=== PATIENT | male | born 1975 | race African-American/Black ===

== ENCOUNTER 2019-02-24 12:13 | Inpatient (IN) ==
[2019-02-24] MEDS ORDERED: NS 1,000 ML IV ONE ×3 (12:40→12:41)
[2019-02-24] MEDS ORDERED: HUMULIN R (PARKWAY) IV ONE (12:41)
[2019-02-24] MEDS ORDERED: HUMULIN R (PARKWAY) ONE (12:54)
[2019-02-24 13:16] LABS: BE -22.6 mmoll (-3.0-3.0); BLOOD TYPE ARTERIAL; HCO3-(ACT) 7.2 mmoll (20.0-26.0); METHB 0.9 % (0.0-1.5); O2(CT) 25.2 mL/dL (15.0-23.0); O2HB 95.9 % (95.0-99.0); PO2(98.6) 137 mmHg (60-100); SAMPLE BLOOD; SAO2 99.4 % (95.0-100.0); THB 18.6 g/dL (11.5-17.4)
[2019-02-24 13:21] LABS: PCO2(98.6) 12 mmHg (35-45); pH(98.6) 7.12 (7.35-7.45)
[2019-02-24 13:22] LABS: ALLEN TEST YES; MODALITY ROOM AIR
[2019-02-24] MEDS ORDERED: ROCEPHIN 1 GM in NS 50 ML IV ONE (13:26)
--- NOTE | 2019-02-24 13:26 | PROVIDER DOCUMENTATION ---
This chart was entered by Mary Gonzalez Scribe, acting as scribe for Gregg Sweeney MD. HPI-General Adult - General Chief Complaint: Weakness Stated Complaint: ELEVATED BS Time Seen by Provider: 02/24/19 12:17 Source: patient Allergies/Adverse Reactions: Patient Allergies Allergy/AdvReac Type Severity Reaction Status Date / Time No Known Allergies Allergy Verified 02/24/19 12:19 Home Medications: Home Medication List Medication Instructions Recorded Confirmed Last Taken Type Lisinopril 20 mg PO DAILY 02/24/19 02/24/19 02/23/19 History Metformin [Glucophage] 1,000 mg PO BID CC 02/24/19 02/24/19 02/24/19 08:00 History - History of Present Illness -Gen Adult Nature of Presenting Problems: 43 y/o male presents to ED with weakness, nausea, polyuria, and polydipsia onset 4 days ago. Pt reports he is diabetic and has not been checking his blood sugar. Pt is alert and oriented. Location of Pain/Injury: reports: generalized Pain Radiation: reports: no radiation Quality of Pain: reports: none Severity: reports: mild Onset/Duration: reports: 4 days ago Timing: reports: still present Context/Activities at Onset: reports: none Modifying Factors: improves with: nothing Associated Symptoms: reports: nausea, weakness, other (polyuria; polydipsia; hyperglycemia) Similar Symptoms Previously?: No Recently seen or treated by another doctor?: No - Diabetes Related Context Context: reports: high blood sugar, prior DKA hospitalization Review of Systems - Adult - REVIEW OF SYSTEMS - ADULT Constitutional: reports: other (hyperglycemia). denies: chills, fever Eyes: reports: no symptoms reported Ears, Nose, Mouth & Throat: reports: no symptoms reported Cardiovascular: denies: chest pain, palpitations Respiratory: denies: cough, shortness of breath Gastrointestinal: reports: nausea. denies: abdominal pain, diarrhea, vomiting Genitourinary: reports: no symptoms reported Musculoskeletal: denies: back pain, joint pain Integumentary: reports: no symptoms reported Neurological: reports: other (weakness). denies: dizziness/vertigo, seizure Psychiatric: reports: no symptoms reported Endocrine: reports: increased thirst, polyuria, other (hyperglycemia). denies: goiter Hematologic/Lymphatic: reports: no symptoms reported Allergic/Immunologic: reports: no symptoms reported All Other Systems: Reviewed and Negative Past History - Adult - PAST MEDICAL HISTORY-ADULT Review of Records: reports: Old Records Reviewed, Nursing Assessment Review, Medications Reviewed Major Childhood Illnesses: reports: denies history Endocrine/Immune: reports: Diabetes - PRIOR SURGERIES/PROCEDURES Surgical/Procedure History: reports: none - IMMUNIZATION STATUS Childhood Immunizations: See Nurse Assessment Flu Vaccine: See Nurse Assessment - FAMILY HISTORY Family History: reviewed, not pertinent - SOCIAL HISTORY Smoking: quit greater than 1 year Substance Use: none/never Alcohol Use Frequency: occasionally Living Situation: family Physical Exam-General - PHYSICAL EXAM-ADULT Initial Vital Signs Reviewed: Yes - CONSTITUTIONAL General Appearance: no apparent distress, obese, lethargic, other (dry oral mucosa, tachycardic) - EYES Eyes: PERRL/EOMI, pink conjunctivae - HEAD, EARS, NOSE, MOUTH & THROAT HENMT: normocephalic/atraumatic. negative: moist mucous membranes (dry) - NECK Neck: non-tender, full range of motion - RESPIRATORY Respiratory: chest non-tender, lungs clear, other (clear) - CARDIOVASCULAR Cardiovascular: tachycardia - GASTROINTESTINAL (ABDOMEN) Abdominal Exam: normal bowel sounds, non tender, soft, other (obese) - MUSCULOSKELETAL Back Exam: normal inspection, no CVA tenderness Extremity: normal range of motion, non-tender, normal gait, other (generalized weakness) Peripheral Pulses: radial (R): 2+, radial (L): 2+ - SKIN Integumentary: normal color, warm/dry - NEUROLOGIC Neurologic: grossly normal - PSYCHIATRIC Psych/Mental Status: normal thought content, normal thought process, anxious Progress - PLAN OF CARE/RESULTS Progress/Plan/Lab Results: Vital Signs - 8 hr 02/24/19 12:16 02/24/19 12:46 Temperature 97.3 F L Pulse Rate 120 H 120 H Respiratory Rate 18 24 Blood Pressure 161/88 174/69 O2 Sat by Pulse Oximetry 99 100 Laboratory Results - last 24 hr 02/24/19 12:21 POC Glucose 500 H Orders Category Date Time Status Cardiac Monitoring DIRECTED Care 02/24/19 12:44 Active FSBS/Accucheck Result AT ADMISSION Care 02/24/19 12:45 Active Misc. NRSG Communication Order DIRECTED Care 02/24/19 12:46 Active ABG [RESP] Routine Lab 02/24/19 12:42 Ordered BLOOD CULTURE [BLDCUL] Stat Lab 02/24/19 12:45 Ordered CBC WITH ELECTRONIC DIFF [HEME] Stat Lab 02/24/19 12:40 Results CMP [COMPREHENSIVE METABOLIC PANEL] [CHEM] Stat Lab 02/24/19 12:45 Received LACTATE, PLASMA [CHEM] Stat Lab 02/24/19 12:[address] W/POSS RFLX CULT [URINALYSIS] Stat Lab 02/24/19 12:44 Uncollected 0.9% Sodium Chloride Inj [Ns] 1,000 ml Med 02/24/19 12:40 Active IV 999 mls/hr 0.9% Sodium Chloride Inj [Ns] 1,000 ml Med 02/24/19 12:40 Active IV 999 mls/hr 0.9% Sodium Chloride Inj [Ns] 1,000 ml Med 02/24/19 12:41 Active IV 999 mls/hr Insulin Human Regular (Impact [Humulin R (Impact)] Med 02/24/19 12:54 Discontinued 1 units .ROUTE .STK-MED ONE Insulin Human Regular (Impact [Humulin R (Impact)] Med 02/24/19 12:41 Discontinued 15 units IV NOW ONE Laboratory Tests 02/24/19 02/24/19 02/24/19 12:21 12:40 12:46 WBC 9.04 RBC 8.21 H Hgb 18.7 H Hct 58.9 H MCV 71.7 L MCH 22.8 L MCHC 31.7 L RDW Std Deviation 18.9 H Plt Count 224 MPV Not Reportable Immature Gran % (Auto) 0.8 H Neut % (Auto) 70.3 Lymph % (Auto) 14.8 L Finney % (Auto) 13.1 H Eos % (Auto) 0.0 Baso % (Auto) 1.0 H Immature Gran # (Auto) 0.07 H Neut # (Auto) 6.36 Lymph # (Auto) 1.34 Finney # (Auto) 1.18 H Eos # (Auto) 0.00 Baso # (Auto) 0.09 PT INR PTT (Actin FS) Specimen Type Sample Site pH pCO2 pO2 HCO3 Base Excess Oxyhemoglobin ABG O2 Sat (Calculated) ABG O2 Saturation ABG Carboxyhemoglobin ABG Methemoglobin Steven Test A-a O2 Difference Total Hemoglobin Lactate Blood Gas Modality FiO2 % Sodium 142 Potassium 5.1 Chloride 102 Carbon Dioxide 5 L Anion Gap 36 BUN 24 H Creatinine 1.6 H Estimated GFR/1.73 m2 47 BUN/Creatinine Ratio 15 Glucose 503 H* POC Glucose 500 H Calculated Osmolality 310 Calcium 9.5 Total Bilirubin 1.10 H AST 20 ALT 25 Alkaline Phosphatase 102 Creatine Kinase Troponin T Total Protein 9.5 H Albumin 4.8 Globulin 5.0 Albumin/Globulin Ratio 1.0 Plasma Lactate 02/24/19 02/24/19 02/24/19 12:46 12:46 12:46 WBC RBC Hgb Hct MCV MCH MCHC RDW Std Deviation Plt Count MPV Immature Gran % (Auto) Neut % (Auto) Lymph % (Auto) Finney % (Auto) Eos % (Auto) Baso % (Auto) Immature Gran # (Auto) Neut # (Auto) Lymph # (Auto) Finney # (Auto) Eos # (Auto) Baso # (Auto) PT 14.4 INR 1.07 PTT (Actin FS) 26.5 Specimen Type Sample Site pH pCO2 pO2 HCO3 Base Excess Oxyhemoglobin ABG O2 Sat (Calculated) ABG O2 Saturation ABG Carboxyhemoglobin ABG Methemoglobin Steven Test A-a O2 Difference Total Hemoglobin Lactate Blood Gas Modality FiO2 % Sodium Potassium Chloride Carbon Dioxide Anion Gap BUN Creatinine Estimated GFR/1.73 m2 BUN/Creatinine Ratio Glucose POC Glucose Calculated Osmolality Calcium Total Bilirubin AST ALT Alkaline Phosphatase Creatine Kinase 70 Troponin T Total Protein Albumin Globulin Albumin/Globulin Ratio Plasma Lactate 3.2 H 02/24/19 02/24/19 02/24/19 12:46 13:00 13:55 WBC RBC Hgb Hct MCV MCH MCHC RDW Std Deviation Plt Count MPV Immature Gran % (Auto) Neut % (Auto) Lymph % (Auto) Finney % (Auto) Eos % (Auto) Baso % (Auto) Immature Gran # (Auto) Neut # (Auto) Lymph # (Auto) Finney # (Auto) Eos # (Auto) Baso # (Auto) PT INR PTT (Actin FS) Specimen Type ARTERIAL Sample Site R RADIAL pH 7.12 L* pCO2 12 L* pO2 137 H HCO3 7.2 L Base Excess -22.6 L Oxyhemoglobin 95.9 ABG O2 Sat (Calculated) 25.2 H ABG O2 Saturation 99.4 ABG Carboxyhemoglobin 2.60 H ABG Methemoglobin 0.9 Steven Test YES A-a O2 Difference -2.0 Total Hemoglobin 18.6 H Lactate 2.60 H Blood Gas Modality ROOM AIR FiO2 % 21.0 Sodium Potassium Chloride Carbon Dioxide Anion Gap BUN Creatinine Estimated GFR/1.73 m2 BUN/Creatinine Ratio Glucose POC Glucose 421 H Calculated Osmolality Calcium Total Bilirubin AST ALT Alkaline Phosphatase Creatine Kinase Troponin T < 0.010 Total Protein Albumin Globulin Albumin/Globulin Ratio Plasma Lactate Result Diagrams: 02/24/19 12:40 02/24/19 12:46 - EKG 1 Time of EKG reading by physician:: 12:31 EKG Read and Signed by:: Gregg Sweeney EKG Interpretation (*Must complete 3 of following elements*): Normal (Borderl ine) Rate: 129 Rhythm: Sinus tach w/ pccasional PVCs [place]: normal QRS: PVC's, other (R atrial enlargement) [place] Interval: normal ST Wave: normal - XRAY 1 XRAY Study: Chest Impression: Normal (FINDINGS: Heart size is normal. There is mild tortuosity of the thoracic aorta. The lungs appear clear. There is no pleural effusion or pneumothorax identified. IMPRESSION: No evidence of acute disease. Electronically signed by Omer Orantes 02/24/2019 1:59 PM) - CONSULTS/PCP/HOSPITALIST Notification #1 *Consult/PCP/Hospitalist*: Dr. Oreilly Time Discussed: 15:05 Reason/Comments: DKA Consult Disposition: Admit Departure - Departure Date of Disposition Decision: 02/24/19 Time of Disposition Decision: 15:08 DIAGNOSIS: Diabetic ketoacidosis Qualifiers: Diabetes mellitus type: type 2 Diabetes mellitus complication detail: without coma Qualified Code(s): E11.10 - Type 2 diabetes mellitus with ketoacidosis without coma Disposition: ADMITTED INPATIENT 09 Certified Medical Emergency: Emergent Condition: Critical - Critical Care Note This patient required my direct & personal management of CC.: Yes Total Time (mins): 170 Critical Care Statement: This patient required my direct personal management to treat or rule out processes, the absence of which, could potentiallly result in sudden, clinically significant life or limb threatening deterioration. Attestation - Physician/ COLLNI Attestation Patient care was provided by Advanced Practice Provider:: No The physician spent face to face time with patient:: Yes Advanced Practice Provider documentation review:: Supervising physician onsite and consulted in the evaluation and care of this patient. The physician did have a face to face encounter with the patient. This chart was documented by the indicated scribe, (Mary Gonzalez, Len) and accurately reflects the services I performed and decisions made by me, Gregg Sweeney MD, as attested by the provider's signature.
--- NOTE | 2019-02-24 14:02 | Diag Imaging Result Doc PS360 ---
EXAM: CHEST-1 VIEW - 02/24/2019 HISTORY: cough TECHNIQUE: Portable chest COMPARISON: None. FINDINGS: Heart size is normal. There is mild tortuosity of the thoracic aorta. The lungs appear clear. There is no pleural effusion or pneumothorax identified. IMPRESSION: No evidence of acute disease. Electronically signed by Omer Orantes 02/24/2019 1:59 PM
[2019-02-24 14:05] LABS: INR 1.07; PROTIME 14.4 Seconds (11.0-16.0)
[2019-02-24 14:06] LABS: PTT 26.5 Seconds (22.3-41.8)
[2019-02-24 14:13] LABS: BASO# 0.09 X1000 (0.0-0.2); HEMATOCRIT 58.9 % (42.0-52.0); HEMOGLOBIN 18.7 g/dL (14.0-18.0); IMM GRAN# 0.07 X1000 (0.0-0.04); IMM GRAN% 0.8 % (0.0-0.5); LYMPH# 1.34 X1000 (1.2-3.4); LYMPH% 14.8 % (20.5-51.1); MCH 22.8 PG (27-31); MCHC 31.7 g/dL (33-37); MCV 71.7 FL (81-99); MONO# 1.18 X1000 (0.11-0.59); MONO% 13.1 % (1.7-9.3); NEUT# 6.36 X1000 (1.4-6.5); NEUT% 70.3 % (42.2-75.2); PLT 224 X1000 (130-400); RBC 8.21 XMIL (4.7-6.1); RDW 18.9 % (11.5-14.5); WBC 9.04 X1000 (4.8-10.8)
[2019-02-24 14:14] LABS: ALBUMIN 4.8 g/dL (3.5-5.0); CALCIUM 9.5 mg/dL (8.8-10.2); CREATININE 1.6 mg/dL (0.7-1.2); POTASSIUM 5.1 mmol/L (3.5-5.1); TOTAL BILIRUBIN 1.1 mg/dL (0.20-1.00); TOTAL PROTEIN 9.5 g/dL (6.3-8.3)
[2019-02-24 14:32] LABS: BILIRUBIN URINE NEGATIVE (NEGATIVE); BLOOD URINE 2+ (NEGATIVE); CLARITY SL. CLOUDY (CLEAR); COLOR YELLOW; KETONE URINE 3+(Large) mg/dL (NEGATIVE); LEUKOCYTES URINE NEGATIVE (NEGATIVE); NITRITE URINE NEGATIVE (NEGATIVE); PROTEIN URINE 1+(30 mg/dL) mg/dL (NEGATIVE); UROBILINOGEN URINE NORMAL
[2019-02-24 14:35] LABS: URINE SOURCE CLEAN CATCH
[2019-02-24 14:45] LABS: URINE BACTERIA 1+ /HFP; URINE CAST NONE SEEN /LPF; URINE CRYSTAL NONE SEEN /HPF; URINE EPITHELIAL CELLS <10 /HPF (<10); URINE SMALL ROUND CELLS TRANSITIONAL PRESENT; URINE WBC <10 /HPF (<10); URINE YEAST NONE SEEN /HPF
[2019-02-24] MEDS: HUMULIN R 100 UNIT in NS 99 ML IV SCH (15:10)
[2019-02-24] MEDS ORDERED: D50W SYRINGE IV PRN (15:15)
[2019-02-24 15:50] LABS: HEMOGLOBIN A1C 10.1 % (4.8-6.0)
[2019-02-24] MEDS ORDERED: COMPAZINE PR PRN (16:00)
[2019-02-24] MEDS ORDERED: POTASSIUM CHLORIDE 40 MEQ/SWI 40 MEQ/100 ML IVPB IV PRN (16:00)
[2019-02-24] MEDS ORDERED: COMPAZINE PO PRN ×2 (16:00→16:02)
[2019-02-24] MEDS ORDERED: TYLENOL PR PRN (16:00)
[2019-02-24] MEDS ORDERED: MAGNESIUM SULFATE 2 GM/S.W.I. 2 GM/50 ML IVPB IV PRN (16:00)
[2019-02-24] MEDS ORDERED: TYLENOL PO PRN (16:00)
[2019-02-24] MEDS ORDERED: ZOFRAN IV PRN (16:00)
[2019-02-24] MEDS ORDERED: POTASSIUM CHLORIDE 20% LIQUID PO PRN (16:00)
[2019-02-24] MEDS ORDERED: COMPAZINE IV PRN (16:00)
[2019-02-24] MEDS ORDERED: SODIUM BICARBONATE 8.4% 100 MEQ in STERILE WATER INJ. 500 ML IV PRN (16:00)
[2019-02-24] MEDS ORDERED: ZOFRAN PO PRN (16:00)
[2019-02-24] MEDS ORDERED: ZOFRAN ODT PO PRN (16:03)
[2019-02-24] MEDS: ATIVAN IV PRN (16:40)
[2019-02-24] MEDS: NS 1,000 ML IV SCH (17:00)
[2019-02-24 17:46] LABS: CALCIUM 8.5 mg/dL (8.8-10.2); CREATININE 1.5 mg/dL (0.7-1.2); MAGNESIUM 2.1 mg/dL (1.5-2.7); PHOSPHORUS 2.9 mg/dL (2.7-4.5); POTASSIUM 5.1 mmol/L (3.5-5.1)
[2019-02-24 17:48] LABS: BILIRUBIN URINE NEGATIVE (NEGATIVE); BLOOD URINE 2+ (NEGATIVE); CLARITY CLEAR (CLEAR); COLOR YELLOW; KETONE URINE 3+(Large) mg/dL (NEGATIVE); LEUKOCYTES URINE NEGATIVE (NEGATIVE); NITRITE URINE NEGATIVE (NEGATIVE); PROTEIN URINE 1+(30 mg/dL) mg/dL (NEGATIVE); UROBILINOGEN URINE NORMAL
[2019-02-24] MEDS ORDERED: D5 1/2 NS 1,000 ML IV SCH (18:00)
[2019-02-24] MEDS ORDERED: VANCOMYCIN IV PER PHARMACY MISC SCH (18:00)
[2019-02-24 18:07] LABS: URINE SOURCE CATH
[2019-02-24] MEDS ORDERED: APRESOLINE IV PRN (18:07)
[2019-02-24 18:09] LABS: URINE BACTERIA NEGATIVE /HFP; URINE CAST NONE SEEN /LPF; URINE CRYSTAL NONE SEEN /HPF; URINE EPITHELIAL CELLS <10 /HPF (<10); URINE RBC <10 /HPF (<10); URINE WBC <10 /HPF (<10); URINE YEAST NONE SEEN /HPF
[2019-02-24 18:10] LABS: URINE SMALL ROUND CELLS TRANSITIONAL PRESENT
[2019-02-24] MEDS: ZOSYN 2.25 GM in NS 50 ML IV SCH ×2 (18:39→23:14)
[2019-02-24] MEDS ORDERED: D5 1/2 NS 1,000 ML IV PRN (19:00)
--- NOTE | 2019-02-24 19:02 | HISTORY AND PHYSICAL ---
PRIMARY CARE PROVIDER: Dr. Christiano Pradhan in [place]. CHIEF COMPLAINT: Weakness. HISTORY OF PRESENT ILLNESS: Mr. Willis is a 43-year-old male who carries a past medical history of diabetes mellitus type 2 and hypertension, who reported weakness. He has been in the bed for 2 to 3 days, stumbling with walking, tiredness, polydipsia, polyuria. He came to the [facility] ED to be evaluated. He was found to be in diabetic ketoacidosis with an acute kidney injury. He will be admitted to the ICU on the DKA protocol. He states that he has been around sick people at work. He did not know what kind of illness they had. He could not describe it. He denies headache, fever, chills, chest pain, shortness of breath, nausea, vomiting, or diarrhea. PAST MEDICAL HISTORY: 1. Diabetes mellitus type 2, on oral medications. 2. Hypertension. PAST SURGICAL HISTORY: Denies. SOCIAL HISTORY: He lives in [place]. He works at . No tobacco, alcohol or illicit drug use. He has a sister at the bedside. FAMILY HISTORY: Father with heart disease, at the age of 70 of myocardial infarction. Mother with lung cancer. ALLERGIES: No known drug allergies. HOME MEDICATIONS: 1. Metformin 1000 mg p.o. b.i.d., this had just been increased from 500 b.i.d. by his primary care. 2. Lisinopril 20 mg p.o. daily. PHYSICAL EXAMINATION: VITAL SIGNS: Temperature is 97.8 degrees, heart rate 115, respirations 20, blood pressure 138/93, O2 is 99%. GENERAL: Mr. Willis is a 43-year-old male who is lying on the stretcher in no acute distress. Initially, he did not want to answer any questions and was a little agitated. However, his sister asked if he could have some water and I stated not until he was more awake and alert. The patient sat up in the bed and started talking and answer questions appropriately, at that time. HEENT: Atraumatic, normocephalic. PERRL. NECK: Supple. Trachea midline. CARDIOVASCULAR: S1, S2 appreciated. No murmurs, gallops, rubs noted. RESPIRATORY: Lung sounds clear bilaterally. GASTROINTESTINAL: Abdomen soft, nontender, nondistended. Positive bowel sounds 4 quadrants. EXTREMITIES: Negative for edema. No signs of clubbing or cyanosis. SKIN: Warm, dry, and intact. NEUROLOGIC: No focal deficits noted. The patient is alert and oriented x4. Follows commands. Moves all extremities. DIAGNOSTIC DATA: Chest x-ray showed no evidence of acute disease. LABORATORY DATA: White count 9, hemoglobin 18 and hematocrit 58, platelet count 224,000. ABG: pH 7.12, pCO2 12, O2 137, bicarbonate 7.2, base excess -22.6. O2 saturation 99% on room air. Lactate 2.60. Sodium 142, potassium 5.1, BUN 24, creatinine 1.6, blood glucose is 503, hemoglobin A1c 10.1, total bilirubin 1.10. Troponin less than 0.010. Triglycerides 220, cholesterol 290, plasma lactate 3.2. Urinalysis 3+ glucose, 3 large ketones, 2+ blood, acetone small. ASSESSMENT AND PLAN: 1. Diabetic ketoacidosis. The patient will be moved to the ICU at [facility]. He will be placed on the DKA protocol. Continue with aggressive IV hydration. We will give him diabetic clears and advance as tolerated per protocol. 2. Acute kidney injury. Unsure if there is an underlying chronic kidney disease. We will hold his lisinopril for now. We will give him p.r.n. metoprolol. 3. Uncontrolled diabetes mellitus. The patient is on p.o. metformin that had recently been increased from 500 to a 1000 mg b.i.d. by his primary care provider in [place] who he has not followed up with in quite some time. 4. Dehydration secondary to #1. 5. Further recommendation to follow physician evaluation, laboratory and diagnostic data. Dictated by EDUARDO Faith for Nico Oreilly MD cc: Nico Oreilly MD [facility]
[2019-02-24] MEDS ORDERED: VANCOMYCIN 2,500 MG in NS 500 ML IV SCH (20:00)
[2019-02-24 21:13] LABS: CALCIUM 8.4 mg/dL (8.8-10.2); CREATININE 1.4 mg/dL (0.7-1.2); MAGNESIUM 2.1 mg/dL (1.5-2.7); PHOSPHORUS 1.8 mg/dL (2.7-4.5); POTASSIUM 4.4 mmol/L (3.5-5.1)
--- NOTE | 2019-02-24 21:36 | HISTORY AND PHYSICAL ---
ADDENDUM: Chief complaint was generalized weakness. Patient seen and examined by myself. Full note dictated and discussed with nurse practitioner. The patient presented to the hospital, is 43- year-old, morbidly obese, male who has a known history of diabetes. He has been on metformin. His blood sugars are elevated. His metformin was increased to 1000 twice daily. He presented to the hospital with blood sugars at 500 and was quite acidotic with a pH of 7.12 and a bicarb of 5. We will admit him to the hospital ICU, place him on an insulin drip, IV fluids. We will keep him n.p.o. until his bicarb elevates to greater than 15. Currently, the patient is awake but seems disoriented. He did have some urinary retention and had 400 mL out after a [place] was placed. cc: Nico Oreilly MD
[2019-02-24] MEDS: POTASSIUM CHLORIDE 10% LIQUID PO PRN (23:14)
[2019-02-25 01:24] LABS: ESTIMATED GFR > 60; PHOSPHORUS 1.4 mg/dL (2.7-4.5)
[2019-02-25 01:30] LABS: AGAP 20; BUN 18 mg/dL (8-22); CHLORIDE 118 mmol/L (98-107); COSMO 302; CREATININE 1.2 mg/dL (0.7-1.2); GLUCOSE 199 mg/dL (70-104); POTASSIUM 4.6 mmol/L (3.5-5.1); SODIUM 148 mmol/L (136-145); TCO2 10 mmol/L (25-35)
[2019-02-25] MEDS: NS 1,000 ML IV SCH ×4 (01:43→17:56)
[2019-02-25] MEDS: POTASSIUM CHLORIDE 10% LIQUID PO PRN ×4 (01:44→14:41)
[2019-02-25 04:49] LABS: AGAP 20; BUN 18 mg/dL (8-22); CALCIUM 8.1 mg/dL (8.8-10.2); CHLORIDE 118 mmol/L (98-107); COSMO 305; CREATININE 1.2 mg/dL (0.7-1.2); ESTIMATED GFR > 60; GLUCOSE 219 mg/dL (70-104); POTASSIUM 4.3 mmol/L (3.5-5.1); SODIUM 149 mmol/L (136-145); TCO2 12 mmol/L (25-35)
[2019-02-25 04:49] LABS: BLOOD TYPE ARTERIAL; HCO3-(ACT) 13.9 mmoll (20.0-26.0); METHB 1.1 % (0.0-1.5); O2(CT) 21.8 mL/dL (15.0-23.0); O2HB 94.4 % (95.0-99.0); PCO2(98.6) 27 mmHg (35-45); PO2(98.6) 93 mmHg (60-100); SAMPLE BLOOD; SAO2 98.7 % (95.0-100.0); THB 16.4 g/dL (11.5-17.4); pH(98.6) 7.24 (7.35-7.45)
[2019-02-25 04:50] LABS: ALLEN TEST YES; MODALITY ROOM AIR
[2019-02-25 04:56] LABS: PHOSPHORUS 1.2 mg/dL (2.7-4.5)
[2019-02-25] MEDS: ZOSYN 2.25 GM in NS 50 ML IV SCH ×3 (05:13→17:55)
[2019-02-25 05:32] LABS: BASO# 0.09 X1000 (0.0-0.2); EOS# 0.05 X1000 (0.0-0.7); EOS% 0.5 % (0.0-10.0); HEMATOCRIT 47.7 % (42.0-52.0); HEMOGLOBIN 15.7 g/dL (14.0-18.0); IMM GRAN# 0.05 X1000 (0.0-0.04); IMM GRAN% 0.5 % (0.0-0.5); LYMPH% 15.2 % (20.5-51.1); MCH 23.5 PG (27-31); MCHC 32.9 g/dL (33-37); MCV 71.3 FL (81-99); MONO# 1.25 X1000 (0.11-0.59); MONO% 13.6 % (1.7-9.3); NEUT# 6.37 X1000 (1.4-6.5); NEUT% 69.2 % (42.2-75.2); PLT 152 X1000 (130-400); RBC 6.69 XMIL (4.7-6.1); RDW 17.3 % (11.5-14.5); WBC 9.21 X1000 (4.8-10.8)
[2019-02-25 05:34] LABS: LYMPHS 15 % (21-51); SEGS 75 % (42-75)
[2019-02-25 05:35] LABS: MONO 10 % (1-9)
[2019-02-25] MEDS: HUMULIN R 100 UNIT in NS 99 ML IV SCH (06:39)
--- NOTE | 2019-02-25 08:03 | Diag Imaging Result Doc PS360 ---
EXAM: CHEST-PORTABLE - 02/25/2019 HISTORY: follow up TECHNIQUE: Portable chest COMPARISON: 02/24/2019 FINDINGS: Heart size is normal. Inspiration is mildly shallow. The lungs appear clear. There is no pleural effusion or pneumothorax identified. IMPRESSION: Mildly shallow inspiration. No other evidence of acute disease. Electronically signed by Omer Orantes 02/25/2019 8:01 AM
[2019-02-25 08:55] LABS: MAGNESIUM 2.1 mg/dL (1.5-2.7); PHOSPHORUS 1.1 mg/dL (2.7-4.5)
[2019-02-25] MEDS: VANCOMYCIN 2,000 MG in NS 500 ML IV SCH ×2 (09:43→21:59)
[2019-02-25 10:05] LABS: CALCIUM 8.3 mg/dL (8.8-10.2); CREATININE 1.3 mg/dL (0.7-1.2); POTASSIUM 4.2 mmol/L (3.5-5.1)
--- NOTE | 2019-02-25 12:28 | EKG Report ---
Test Performed on : 02/24/2019 12:31:10 PM Test Reason : ER Blood Pressure : / mmHG Vent. Rate : 129 BPM Atrial Rate : 129 BPM P-R Int : 120 ms QRS Dur : 074 ms QT Int : 312 ms P-R-T Axes : 069 -06 026 degrees QTc Int : 457 ms Sinus tachycardia. with occasional premature ventricular complexes. Right atrial enlargement Borderline ECG No previous ECGs available Unconfirmed Result
[2019-02-25 13:59] LABS: MAGNESIUM 2.1 mg/dL (1.5-2.7)
[2019-02-25 14:24] LABS: ESTIMATED GFR > 60
[2019-02-25 14:26] LABS: AGAP 22; BUN 15 mg/dL (8-22); CALCIUM 8.3 mg/dL (8.8-10.2); CHLORIDE 120 mmol/L (98-107); COSMO 309; CREATININE 1.2 mg/dL (0.7-1.2); GLUCOSE 220 mg/dL (70-104); POTASSIUM 4.4 mmol/L (3.5-5.1); SODIUM 152 mmol/L (136-145); TCO2 10 mmol/L (25-35)
[2019-02-25 18:43] LABS: ESTIMATED GFR > 60
[2019-02-25 18:50] LABS: AGAP 18; BUN 13 mg/dL (8-22); CALCIUM 8.4 mg/dL (8.8-10.2); CHLORIDE 118 mmol/L (98-107); COSMO 308; CREATININE 1.2 mg/dL (0.7-1.2); GLUCOSE 217 mg/dL (70-104); SODIUM 152 mmol/L (136-145); TCO2 16 mmol/L (25-35)
[2019-02-25 18:53] LABS: MAGNESIUM 2.1 mg/dL (1.5-2.7)
[2019-02-25 18:56] LABS: PHOSPHORUS 0.6 mg/dL (2.7-4.5)
[2019-02-25] MEDS: POTASSIUM CHLORIDE 20 MEQ/SWI 20 MEQ/100 ML IVPB IV PRN (19:52)
[2019-02-25] MEDS: SODIUM PHOSPHATE 30 MMOL in D5W 250 ML IV PRN (19:53)
[2019-02-25 21:50] LABS: AGAP 17; BUN 12 mg/dL (8-22); CHLORIDE 118 mmol/L (98-107); COSMO 307; CREATININE 1.2 mg/dL (0.7-1.2); ESTIMATED GFR > 60; GLUCOSE 232 mg/dL (70-104); SODIUM 151 mmol/L (136-145); TCO2 16 mmol/L (25-35)
--- NOTE | 2019-02-25 22:00 | PROGRESS NOTE ---
DATE: 02/25/2019 SUBJECTIVE: Patient has no complaints. He is a little somnolent this morning. OBJECTIVE: Vital Signs: Reviewed. He is afebrile, pulse 80s, respiratory rate 20s. General: The patient is morbidly obese. He is in no current respiratory distress. HEENT: Normocephalic. Neck: Supple. Cardiovascular: Regular rate. Chest: Decreased secondary to body habitus, although appears clear. Abdomen: Soft. Extremities: Moves all extremities. ASSESSMENT: 1. Diabetic ketoacidosis, improving although still acidotic. 2. Acute kidney injury, resolved. 3. Uncontrolled diabetes at home. 4. Dehydration. PLAN: We will continue patient in the hospital. His C-peptide is in the normal range at 1.4. Would certainly expect this to be higher given that his blood sugars are markedly elevated at 500. We will continue on insulin drip until his bicarb is improved. We will attempt to advance his diet as this resolves. Certainly think he will need to be on insulin for the long-term basis. TIME SPENT: 35 minutes spent in total care. cc: Nico Oreilly MD
[2019-02-26] MEDS: ZOSYN 2.25 GM in NS 50 ML IV SCH ×5 (00:25→18:03)
[2019-02-26 02:05] LABS: AGAP 18; BUN 10 mg/dL (8-22); CHLORIDE 121 mmol/L (98-107); COSMO 315; CREATININE 1.1 mg/dL (0.7-1.2); ESTIMATED GFR > 60; GLUCOSE 258 mg/dL (70-104); PHOSPHORUS 1.6 mg/dL (2.7-4.5); POTASSIUM 3.7 mmol/L (3.5-5.1); SODIUM 155 mmol/L (136-145); TCO2 16 mmol/L (25-35)
[2019-02-26] MEDS: POTASSIUM CHLORIDE 20 MEQ/SWI 20 MEQ/100 ML IVPB IV PRN ×2 (03:16→15:13)
[2019-02-26] MEDS: NS 1,000 ML IV SCH ×3 (03:16→18:02)
[2019-02-26] MEDS: ATIVAN IV PRN (03:56)
[2019-02-26] MEDS: LOPRESSOR PO SCH ×2 (09:02→20:37)
[2019-02-26 09:31] LABS: ESTIMATED GFR > 60
[2019-02-26 09:33] LABS: AGAP 19; BUN 9 mg/dL (8-22); CALCIUM 8.2 mg/dL (8.8-10.2); CHLORIDE 119 mmol/L (98-107); COSMO 310; CREATININE 1.1 mg/dL (0.7-1.2); GLUCOSE 229 mg/dL (70-104); MAGNESIUM 1.9 mg/dL (1.5-2.7); PHOSPHORUS 1.2 mg/dL (2.7-4.5); POTASSIUM 3.6 mmol/L (3.5-5.1); SODIUM 153 mmol/L (136-145); TCO2 16 mmol/L (25-35)
[2019-02-26] MEDS: POTASSIUM CHLORIDE 10% LIQUID PO PRN (10:05)
[2019-02-26] MEDS: HUMULIN R 100 UNIT in NS 99 ML IV SCH (12:19)
[2019-02-26 14:29] LABS: ESTIMATED GFR > 60
[2019-02-26 14:53] LABS: AGAP 14; BUN 9 mg/dL (8-22); CALCIUM 7.9 mg/dL (8.8-10.2); CHLORIDE 120 mmol/L (98-107); COSMO 312; CREATININE 1.1 mg/dL (0.7-1.2); GLUCOSE 311 mg/dL (70-104); MAGNESIUM 1.9 mg/dL (1.5-2.7); PHOSPHORUS 0.9 mg/dL (2.7-4.5); POTASSIUM 3.7 mmol/L (3.5-5.1); SODIUM 152 mmol/L (136-145); TCO2 19 mmol/L (25-35)
[2019-02-26] MEDS: SODIUM PHOSPHATE 30 MMOL in D5W 250 ML IV PRN (15:12)
[2019-02-26 17:06] LABS: AGAP 12; BUN 8 mg/dL (8-22); CALCIUM 7.9 mg/dL (8.8-10.2); CHLORIDE 119 mmol/L (98-107); COSMO 311; CREATININE 1.1 mg/dL (0.7-1.2); ESTIMATED GFR > 60; GLUCOSE 262 mg/dL (70-104); MAGNESIUM 1.9 mg/dL (1.5-2.7); PHOSPHORUS 1.1 mg/dL (2.7-4.5); POTASSIUM 4.1 mmol/L (3.5-5.1); SODIUM 153 mmol/L (136-145); TCO2 22 mmol/L (25-35)
[2019-02-26] MEDS ORDERED: LANTUS INSULIN SUBQ ONE (18:25)
[2019-02-26] MEDS: HUMALOG (PARKWAY) SUBQ SCH (20:43)
[2019-02-26 21:57] LABS: ESTIMATED GFR > 60
[2019-02-26 22:01] LABS: AGAP 12; BUN 7 mg/dL (8-22); CALCIUM 7.8 mg/dL (8.8-10.2); CHLORIDE 121 mmol/L (98-107); COSMO 311; CREATININE 1.1 mg/dL (0.7-1.2); GLUCOSE 230 mg/dL (70-104); POTASSIUM 3.5 mmol/L (3.5-5.1); SODIUM 154 mmol/L (136-145); TCO2 21 mmol/L (25-35)
--- NOTE | 2019-02-26 23:42 | PROGRESS NOTE ---
DATE: 02/26/2019 SUBJECTIVE: Patient denies any complaints. PHYSICAL EXAMINATION: Vital Signs: Temperature 98.3 degrees, pulse 116, respiratory 14, BP 127/82. General: Patient is a morbidly obese male who on exam while I am in his room seems quite somnolent. He is in no respiratory distress. He seems either unable or unwilling to answer questions. Although interestingly when I am sitting the equivalent of 3 rooms away and talking to the nurse and asking if he drank any liquids last night in a normal calm voice, Mr. Willis is able to reply from his room that no he did not. HEENT: Normocephalic. Neck: Supple. Cardiovascular: Tachycardia but regular rhythm. Chest: Clear, nonlabored although decreased sounds due to body habitus. Abdomen: Soft, obese, appears nontender. Extremities: Moves all extremities. ASSESSMENT: 1. Diabetic ketoacidosis. 2. Diabetes. Patient will need to be transitioned over to insulin. His blood sugars were 500s and his C-peptide level was 1.4. 3. Dehydration, resolved. 4. Supraventricular tachycardia. We will add Toprol and we will follow. Hopefully patient can be transitioned to oral diet and to Lantus today if his labs improve and hopefully home over the next 1 or 2 days. cc: Nico Oreilly MD
[2019-02-27] MEDS: ZOSYN 2.25 GM in NS 50 ML IV SCH ×5 (00:15→23:10)
[2019-02-27] MEDS: HUMALOG (PARKWAY) SUBQ SCH ×4 (06:29→21:13)
[2019-02-27 07:58] LABS: AGAP 19; ALBUMIN 3.3 g/dL (3.5-5.0); ALKALINE PHOSPHATASE 65 U/L (32-122); BUN 7 mg/dL (8-22); CALCIUM 7.7 mg/dL (8.8-10.2); CHLORIDE 115 mmol/L (98-107); COSMO 306; ESTIMATED GFR > 60; GLUCOSE 280 mg/dL (70-104); GOT 16 U/L (10-34); GPT 18 U/L (10-44); MAGNESIUM 1.6 mg/dL (1.5-2.7); POTASSIUM 3.4 mmol/L (3.5-5.1); SODIUM 150 mmol/L (136-145); TCO2 17 mmol/L (25-35); TOTAL PROTEIN 6.2 g/dL (6.3-8.3)
[2019-02-27 08:05] LABS: HEMATOCRIT 40.5 % (42.0-52.0); HEMOGLOBIN 13.3 g/dL (14.0-18.0); MCH 23.5 PG (27-31); MCHC 32.8 g/dL (33-37); MCV 71.7 FL (81-99); PLT 118 X1000 (130-400); RBC 5.65 XMIL (4.7-6.1); RDW 17.1 % (11.5-14.5); WBC 6.24 X1000 (4.8-10.8)
[2019-02-27] MEDS ORDERED: LANTUS INSULIN SUBQ ONE (08:13)
[2019-02-27] MEDS: LOPRESSOR PO SCH ×2 (09:43→21:13)
[2019-02-27] MEDS: GLUCOPHAGE PO SCH (18:19)
--- NOTE | 2019-02-27 22:38 | PROGRESS NOTE ---
DATE: 02/27/2019 SUBJECTIVE: Patient notes he is feeling a lot better this morning. He is having no abdominal pain. No nausea. OBJECTIVE: Vital signs: Temperature 98.6 degrees, pulse 84, respiratory rate 18, BP 145/59. General: Patient is very pleasant to talk with currently. He is in no respiratory distress. HEENT: Normocephalic, atraumatic. DEBORAH. Neck: Supple. Cardiovascular: Regular rate. Chest: Clear. Abdomen: Soft nondistended, obese. Extremities: Moves all extremities. ASSESSMENT: 1. Diabetes. His C-peptide is elevated. Discussed with him that he is not a true type 1 diabetic, but he currently has insulin-dependent diabetes. We will continue him on insulin. We will transfer him to the floor. We will continue to treat. Continue to educate him about the importance of his diabetic diet and diabetes control. Hopefully he can be discharged home over the next 1 or 2 days. 2. Morbid obesity. 3. Hypertension. We will continue to follow. cc: Nico Oreilly MD
[2019-02-28] MEDS: ZOSYN 2.25 GM in NS 50 ML IV SCH ×2 (05:10→12:09)
[2019-02-28 05:37] VITALS: BP 121/69
[2019-02-28] MEDS: HUMALOG (PARKWAY) SUBQ SCH ×3 (06:29→11:50)
[2019-02-28] MEDS: LOPRESSOR PO SCH (08:44)
[2019-02-28] MEDS: GLUCOPHAGE PO SCH (08:44)
[2019-02-28] MEDS ORDERED: LANTUS INSULIN SUBQ SCH (09:00)
[2019-02-28 09:45] LABS: HEMOGLOBIN 13.4 g/dL (14.0-18.0); MCH 23.4 PG (27-31); MCHC 32.7 g/dL (33-37); MCV 71.6 FL (81-99); PLT 107 X1000 (130-400); RBC 5.73 XMIL (4.7-6.1)
[2019-02-28 10:05] LABS: AGAP 13; ALBUMIN 3.6 g/dL (3.5-5.0); ALKALINE PHOSPHATASE 76 U/L (32-122); BUN 6 mg/dL (8-22); CALCIUM 8.4 mg/dL (8.8-10.2); CHLORIDE 111 mmol/L (98-107); COSMO 306; ESTIMATED GFR > 60; GLUCOSE 312 mg/dL (70-104); GOT 15 U/L (10-34); GPT 20 U/L (10-44); POTASSIUM 3.3 mmol/L (3.5-5.1); SODIUM 149 mmol/L (136-145); TCO2 25 mmol/L (25-35); TOTAL PROTEIN 6.6 g/dL (6.3-8.3)
--- NOTE | 2019-03-01 10:38 | DISCHARGE SUMMARY ---
ADMISSION DATE: 02/24/2019 DISCHARGE DATE: 02/28/2019 DISCHARGE DIAGNOSES: 1. Diabetes with acidosis, resolved. 2. Morbid obesity. 3. Hypertension. CONSULTATIONS: None. PROCEDURES: None. BRIEF HOSPITAL COURSE: Patient is a 43-year-old morbidly obese male who presented to the hospital, treated in the usual fashion, was placed on insulin drip secondary to marked acidosis. A C-peptide was obtained and was actually in the normal range from 1 to 4. I discussed with the patient that although he does not have full insulin-dependent diabetes. He certainly needs to stay on insulin for the moment. We will continue his Lantus for now. I discussed with him the importance of diet control, exercise, etc. We will continue to follow. He will follow up outpatient with primary care of his choice. DISPOSITION: I discussed with patient the use of Lantus. He will start at 14 units. We will increase by 2 units a day until his blood sugars are below 200s. I discussed with him the importance of diet control, exercise and following a good diabetic regimen. cc: Nico Oreilly MD
== END 2019-02-28 13:30 | disposition home or self-care (01) | DRG 638 ==
LOC: P.ED 12:13 → P.ICU 12:14 → P.MEDSURG 02-27 16:32
PROVIDERS: ATTEND Family Medicine
CPT/HCPCS: 71010; 71045; 80048; 80053; 80061; 81001; 82009; 82550; 82805; 82948; 83036; 83605; 83721; 83735; 84100; 84132; 84484; 84681; 85025; 85027; 85610; 85730; 87040; 93005; A9270; J0360; J0696; J1815; J2060; J2543; J3370; J3480; J7030; J7040; J7060; XXXXX